=== PATIENT | female | born 1935 | race Caucasian/White ===

== ENCOUNTER 2021-05-20 09:58 | Outpatient (REF) | payer MEDICARE, SELFPAY ==
[2021-05-20 12:09] LABS: Thyroid Stimulating Hormone 23.68 uIU/mL (0.32-4.0); Vitamin D 25-OH Total 22.3 ng/mL (>30)
[2021-05-20 12:18] LABS: Vitamin B12 281 pg/mL (200-900)
[2021-05-20 12:19] LABS: Magnesium 2.4 mg/dL (1.6-2.6)
== END 2021-05-20 09:59 | disposition home or self-care (01) ==
LOC: HO.MANLDS 09:58
PROVIDERS: PCP Internal Medicine; Visit Provider Internal Medicine
DX: E03.9 Hypothyroidism, unspecified (principal); R53.83 Other fatigue
CPT/HCPCS: 36415; 82306; 82607; 83735; 84443